=== PATIENT | male | born 1975 | race Caucasian/White ===

== ENCOUNTER 2017-10-21 16:43 | Emergency (ER) | payer BC ==
[2017-10-21] MEDS ORDERED: predniSONE 10 MG Tab ONE (16:50)
--- NOTE | 2017-10-22 00:22 | ER ---
The patient is a 42-year-old male who comes in today with actually 3 wasp stings that he sustained yesterday. Last week, he sustained a couple of other ones and went to the ER, and got some cetirizine 10 mg p.o. daily and some Keflex 500 mg p.o. t.i.d. He has been taking that since yesterday when these wasps stung him. He is complaining of swelling in his right ankle and on his left hand. The patient has an intact blister on the left hand. He got 2 stings on the arm and 1 on the ankle. He notes the cetirizine and Keflex does not seem to be helping much. He did take a Benadryl, which also did not help much. PHYSICAL EXAMINATION: GENERAL: He is alert, oriented, in no apparent distress. VITAL SIGNS: Temperature is 99.5, pulse is 89, blood pressure is 133/77, O2 saturation is 98% on room air, respirations are 18. HEENT: Unremarkable. NECK: Supple. No nodes. LUNGS: Clear. HEART : Regular sinus rhythm. The patient has an erythematous swollen area on the left ankle and on the left wrist that is erythematous, warm, tender, and swollen. ASSESSMENT: Insect envenomation. PLAN: Discussed with the patient there is really nothing that can be done for this other than a cool pack, and he can take some Benadryl which might make him drowsy, some ibuprofen for the pain. He notes he really needs something. He does not want to leave the ER empty handed. He wanted to know if he could get a steroid shot. We ended up giving him 40 mg of prednisone a day for 3 days. I did discuss with him it probably is not going to do much and by tomorrow his wasp sting will probably be better anyway. The patient to return to clinic if it does not improve over the next couple of days. He can continue with the cetirizine and the cephalexin, but it has not seemed to have done him a lot of good so far. JEAN/TIMA /[id number] JUSTO
== END 2017-10-21 17:10 | disposition home or self-care (01) ==
LOC: LB.ED 16:43
DX: T63.461A Toxic effect of venom of wasps, accidental (unintentional), initial encounter (principal)
CPT/HCPCS: 99282; A9270